=== PATIENT | female | born 1945 | race Caucasian/White ===

== ENCOUNTER → 2019-02-20 | Outpatient (CLI) | payer OTHER ==
[~2019-02-20] MED LIST: ALENDRONATE SOD70 M1 PO; AMLODIPINE BESYL5 MG PO; HYDROCODONE BIT1 T11 PO; LEVOTHYROXIN0.075 M1 PO
[2019-02-20 09:17] LABS: BASO % 0.8 % (0.0-1.0); EOS # 0.2 10*3/uL (0.0-0.4); EOS % 3.9 % (1.0-4.0); HEMATOCRIT 40.7 % (37.0-47.0); HEMOGLOBIN 13.4 g/dl (12.0-16.0); LYMPH # 1.2 10*3/uL (1.3-4.4); LYMPH % 25.1 % (27.0-41.0); MEAN CELL VOLUME 92.3 fl (81.0-99.0); MEAN CORPUSCULAR HGB 30.4 pg (27.0-31.0); MEAN CORPUSCULAR HGB CONC 32.9 g/dl (33.0-37.0); MONO # 0.5 10*3/uL (0.1-1.0); MONO % 10.6 % (3.0-9.0); NEUT # 2.9 10*3/uL (2.3-7.9); NEUT % 59.4 % (47.0-73.0); PLATELET COUNT AUTOMATED 261 10*3/uL (130-400); RED BLOOD COUNT 4.41 10*6/uL (4.10-5.10); RED CELL DISTRI WIDTH 13.2 % (0-14.5); WHITE BLOOD COUNT 4.9 10*3/uL (4.8-10.8)
[2019-02-20 09:48] LABS: ALKALINE PHOSPHATASE 85 U/L (45-117); BUN 22 mg/dl (7-24); CHLORIDE 107 mmol/L (98-107); CHOLESTEROL 171 mg/dL (<200); CREATININE 0.75 mg/dL (0.55-1.02); FREE T4 1.06 ng/dl (0.76-1.46); HDL CHOLESTEROL 78 mg/dl (40-60); LDL CHOLESTEROL 78 mg/dL (9-159); POTASSIUM 3.9 mmol/L (3.5-5.1); SGOT/AST 31 IU/L (3-35); SGPT/ALT 55 U/L (12-78); SODIUM 140 mmol/L (136-145); TOTAL PROTEIN 7.4 gm/dL (6.4-8.2); TRIGLYCERIDES 77 mg/dl (<150); VLDL CHOLESTEROL 15 mg/dL (6-40)
[2019-02-20 10:24] LABS: VITAMIN D, 25-HYDROXY 69.6 ng/mL (30-100)
== END | disposition home or self-care (01) ==
LOC: LAB 08:20
PROVIDERS: Internal Medicine
DX: E03.9 Hypothyroidism, unspecified (principal); I10 Essential (primary) hypertension; M81.0 Age-related osteoporosis without current pathological fracture; E78.2 Mixed hyperlipidemia; E55.9 Vitamin D deficiency, unspecified; E53.8 Deficiency of other specified B group vitamins

== ENCOUNTER → 2019-02-25 | Outpatient (CLI) | payer OTHER | END | disposition home or self-care (01) | LOC: CT 18:32 | DX: K76.0 Fatty (change of) liver, not elsewhere classified (principal); K76.89 Other specified diseases of liver; Z90.710 Acquired absence of both cervix and uterus ==

== ENCOUNTER → 2019-09-08 | Outpatient (CLI) | payer OTHER ==
[2019-09-08 15:45] LABS: FREE T4 0.86 ng/dl (0.76-1.46)
[2019-09-08 15:50] LABS: THYROID STIM HORMONE (HS) 1.6 uIU/ml (0.358-4.75)
== END | disposition home or self-care (01) ==
LOC: LAB 12:49 → RAD 13:30
PROVIDERS: Internal Medicine
DX: Z13.820 Encounter for screening for osteoporosis (principal); E03.9 Hypothyroidism, unspecified; E78.2 Mixed hyperlipidemia; Z78.0 Asymptomatic menopausal state